=== PATIENT | female | born 1980 | race Caucasian/White ===

== ENCOUNTER 2017-03-03 11:44 | Emergency (ER) | payer OTHER ==
[~2017-03-03] VITALS: Ht 157.5 cm; Wt 74.1 kg
[2017-03-03 11:53] VITALS: BP 121/81
[2017-03-03] MEDS ORDERED: LIDOCAINE 1%, 20ML ONE ×2 (12:28→12:57)
[2017-03-03] MEDS ORDERED: LIDOCAINE 1%, 20ML SQ ONE (12:30)
[2017-03-03] MEDS ORDERED: HYDROcodone/APAP 5/325 TABLET PO ONE (13:30)
[2017-03-03] MEDS ORDERED: BACITRACIN ZINC OINT 500U/GM, 0.9 GM ONE (13:37)
[2017-03-03] MEDS ORDERED: HYDROcodone/APAP 5/325 TABLET ONE (13:45)
== END 2017-03-03 13:54 | disposition home or self-care (01) ==
LOC: ED 13:00
DX: S61.011A Laceration without foreign body of right thumb without damage to nail, initial encounter (principal); X58.XXXA Exposure to other specified factors, initial encounter; Y93.89 Activity, other specified; Y99.8 Other external cause status; Y92.89 Other specified places as the place of occurrence of the external cause
CPT/HCPCS: 12002; 99283; J3490